=== PATIENT | female | born 1950 | race Asian ===

== ENCOUNTER 2021-02-06 06:39 | Day surgery (SDC) | payer OTHER, SELFPAY ==
[~2021-02-06] VITALS: Ht 137.2 cm; Wt 46.7 kg
[2021-02-06] MEDS ORDERED: MIDAZOLAM 2 MG/2 ML VIAL ONE ×2 (07:50→07:52)
[2021-02-06] MEDS ORDERED: fentaNYL citrate 0.05 MG/ML VIAL ONE (07:51)
[2021-02-06] MEDS ORDERED: fentaNYL citrate 0.05 MG/ML VIAL IVP ONE (13:15)
[2021-02-06] MEDS ORDERED: MIDAZOLAM 2 MG/2 ML VIAL IVP ONE (13:15)
== END 2021-02-06 08:57 | disposition home or self-care (01) ==
LOC: MOR 06:39 → MMU 06:40 → MOR 08:57
PROVIDERS: ATTEND Internal Medicine Gastroenterology
DX: R10.9 Unspecified abdominal pain (principal); K85.80 Other acute pancreatitis without necrosis or infection; Z80.0 Family history of malignant neoplasm of digestive organs; Z79.899 Other long term (current) drug therapy; Z20.822 Contact with and (suspected) exposure to COVID-19
CPT/HCPCS: 43239; 87426; J2250; J3010